=== PATIENT | female | born 1965 | race African-American/Black ===

== ENCOUNTER → 2017-11-07 | Outpatient (REF) ==
[~2017-11-07] MED LIST: ASPI81TA86 PO; CYCL10TA29 PO; HYDR-2966 PO; KET10 PO; LOR5/325 PO; MELO-150 PO; METH-280 PO; OXYC-865 PO; PROM-110 PO
--- NOTE | 2017-11-07 16:07 | RADIOLOGY IMAGING REPORT ---
FACILITY: [facility] - [place] PATIENT NAME: Angelina Lackey : 1965 MR: [id number] V: [id number] EXAM DATE: ORDERING PHYSICIAN: MIKAL SCHOFIELD TECHNOLOGIST: [place] [facility] [place] Angelina Lackey : 1965 Visit/Account:[id number] Date of Sevice: 11/07/2017 Exam type: THORACIC SPINE 2 VIEW History: Pain middle back radiating down to lower back Comparison: None. Findings: There are mild to moderate spondylotic changes seen throughout the thoracic spine particular prominen t in the midthoracic spine with mild to moderate disc space narrowing and small marginal osteophytes. There is no demonstration of acute fractures or subluxations the upper thoracic spine not ideally v isualized due to patient rotation IMPRESSION: 1. Mild to moderate spondylotic changes throughout the thoracic spine particularly prominent in the midthoracic spine. Report Dictated By: Cathryn Garcia MD at 11/07/2017 4:02 PM Report E-Signed By: Cathryn Garcia MD at 11/07/2017 4:04 PM WSN:[email or web address]
--- NOTE | 2017-11-07 16:07 | RADIOLOGY IMAGING REPORT ---
FACILITY: [facility] - [place] PATIENT NAME: Angelina Lackey : 1965 MR: [id number] V: [id number] EXAM DATE: ORDERING PHYSICIAN: MIKAL SCHOFIELD TECHNOLOGIST: Location: [facility] Patient: Angelina Lackey : 1965 Visit/Account:[id number] Date of Sevice: 11/07/2017 Exam type: LUMBAR SPINE 2 OR 3 VIEW History: Pain middle back radiating down to lower back Comparison: None. Findings: There are five nonrib-bearing lumbar-type vertebral bodies present. There is no evidence of acute fr actures or subluxations. There is mild disc space narrowing at L5-S1.. Incidentally noted are surgi sina clips in the right upper quadrant IMPRESSION: 1. Mild disc space narrowing at L5-S1 Report Dictated By: Cathryn Garcia MD at 11/07/2017 4:02 PM Report E-Signed By: Cathryn Garcia MD at 11/07/2017 4:02 PM WSN:[email or web address]
== END ==
LOC: RAD 15:11
PROVIDERS: ATTEND Orthopaedic Surgery Orthopaedic Surgery of the Spine
DX: M47.814 Spondylosis without myelopathy or radiculopathy, thoracic region (principal)
CPT/HCPCS: 72070; 72100

== ENCOUNTER 2017-12-13 09:37 | Emergency (ER) | payer SELFPAY ==
[~2017-12-13] VITALS: Ht 170.2 cm; Wt 81.6 kg
--- NOTE | 2017-12-13 09:47 | ER Report ---
History and Physical Time Seen By : 09:49 Hx. of Stated Complaint: CHEST HEAVINESS AND ELEVATED BP HPI/ROS CHIEF COMPLAINT: back pain, chest pain, elevated blood pressure HISTORY OF PRESENT ILLNESS: This is a 52 year old female. She is having some ongoing problems with pain in her back. Generally on the right upper back with spasming associated, but has had some in the left side as well. Feeling some heaviness in the chest the last few days, thought this might be due to a new exercise program she is doing to try and lose some weight. No fevers or chills. No cough, runny nose or sore throat. No nausea or vomiting. No abdominal pain. No problems with bowels or urination, no blood in stool or urine, no black stools. She does have high blood pressure, noted that her blood pressure was higher than usual today. Took it multiple times on the [employer] blood pressure machine. She takes Amlodipine 5mg once a day. Had some old Hydrochlorothiazide and took two of these this morning. Wondering if her blood pressure might be high because of her pain. Allergies: Coded Allergies: Penicillins (Verified Allergy, Severe, SWELLING/SOB, 12/13/17) shellfish derived (Unverified Allergy, Unknown, 12/13/17) latex (Verified Adverse Reaction, Severe, RASH, 12/13/17) Home Meds Active Scripts Hydrochlorothiazide (HYDROCHLOROTHIAZIDE) 25 Mg Tablet, 1 TAB PO QDAY, #30 TAB 0 Refills Prov:BURTON VALDEZ MD 12/13/17 Amlodipine Besylate (AMLODIPINE BESYLATE) 10 Mg Tablet, 1 TAB PO QDAY, #30 TAB 0 Refills Prov:BURTON VALDEZ MD 12/13/17 Cyclobenzaprine Hcl (CYCLOBENZAPRINE HCL) 10 Mg Tablet, 10 MG PO Q8H Y for MUSCLE SPASMS, #20 TAB 0 Refills Prov:BURTON VALDEZ MD 12/13/17 Tramadol Hcl (TRAMADOL HCL) 50 Mg Tablet, 50 MG PO Q6H Y for PAIN, #12 TAB 0 Refills Prov:BURTON VALDEZ MD 12/13/17 Reported Medications Amlodipine Besylate (AMLODIPINE BESYLATE) 5 Mg Tablet, 1 TAB PO QDAY, TAB 12/13/17 Hydrochlorothiazide (HYDROCHLOROTHIAZIDE) 25 Mg Tablet, 1 TAB PO QDAY, TAB 06/05/17 Discontinued Reported Medications Aspirin (ASPIRIN EC) 81 Mg Tablet., 81 MG PO QDAY, TAB 05/11/16 Reviewed Nurses Notes: Yes Hx Smoking: Yes (3 CIG PER WK FOR 5 YRS) Smoking Status: Current: Some Days Smoker Hx Substance Use Disorder: No Hx Alcohol Use: No Constitutional Vital Sign - Last 24 Hours 12/13/17 12/13/17 12/13/17 12/13/17 09:45 10:00 10:30 11:00 Temp 98.3 Pulse 86 87 84 81 Resp 18 25 25 25 B/P (MAP) 173/113 156/98 (117) 154/104 (121) 139/92 (108) Pulse Ox 97 97 97 96 O2 Delivery Room Air Physical Exam General Appearance: The patient is alert. No acute distress. Non-toxic in appearance. Eyes: Pupils are equal, round. Reactive to light. No pallor, injection or icterus. Extraocular movements are intact. ENT: Mucous membranes are moist. Normal oral mucosa. Posterior oropharynx is normal. Normal nasal mucosa. Normal tympanic membranes and canals. Neck: Supple and non tender. No lymphadenopathy. Respiratory: Lungs are clear to auscultation. Cardiovascular: Regular rate and rhythm. No murmurs, gallops or rubs. Normal capillary refill. No edema. Gastrointestinal: Abdomen is soft and non tender. Nondistended. Normal active bowel sounds. No costovertebral angle tenderness with percussion. Neurological: Alert and oriented x3. No focal neurologic deficits in cranial nerves or extremities. Skin: Warm and dry. No rashes. Musculoskeletal: Pain and muscle spasms on the right side of her back in the thoracic region extending down into the low back. No midline tenderness. Slight pain on left side as well in same location. DIFFERENTIAL DIAGNOSIS: After history and physical exam, differential diagnosis was considered for elevated blood pressure in a patient with hypertension. This could be due to pain or we may need to increase her medication for hypertension. Pain associated with the muscle spasms and pain in the upper back. Medical Decision Making Data Points Result Diagram: 12/13/17 0954 12/13/17 0954 Laboratory Hematology Test 12/13/17 09:54 Red Blood Count 4.79 M/uL (4.17-5.56) Mean Corpuscular Volume 87.6 fL (80.0-96.0) Mean Corpuscular Hemoglobin 29.8 pg (26.0-33.0) Mean Corpuscular Hemoglobin Concent 34.0 g/dL (32.0-36.0) Red Cell Distribution Width 14.1 % (11.5-14.5) Mean Platelet Volume 10.2 fL (7.2-11.1) Neutrophils (%) (Auto) 66.0 % (39.4-72.5) Lymphocytes (%) (Auto) 25.7 % (17.6-49.6) Monocytes (%) (Auto) 5.9 % (4.1-12.4) Eosinophils (%) (Auto) 1.6 % (0.4-6.7) Basophils (%) (Auto) 0.8 % (0.3-1.4) Nucleated RBC Relative Count (auto) 0.0 /100WBC Neutrophils # (Auto) 4.9 K/uL (2.0-7.4) Lymphocytes # (Auto) 1.9 K/uL (1.3-3.6) Monocytes # (Auto) 0.4 K/uL (0.3-1.0) Eosinophils # (Auto) 0.1 K/uL (0.0-0.5) Basophils # (Auto) 0.1 K/uL (0.0-0.1) Nucleated RBC Absolute Count (auto) 0.00 K/uL D-Dimer Quantitative (PE/DVT) 0.30 ug/ml (0-0.50) Sodium Level 139 mmol/L (137-145) Potassium Level 3.6 mmol/L (3.5-5.0) Chloride Level 103 mmol/L (98-107) Carbon Dioxide Level 21 mmol/L (22-31) Blood Urea Nitrogen 13 mg/dl (7-18) Creatinine 0.70 mg/dl (0.52-1.04) Glomerular Filtration Rate Calc > 60.0 Random Glucose 122 mg/dl (75-110) Calcium Level 9.6 mg/dl (8.4-10.2) Total Bilirubin 0.5 mg/dl (0.2-1.3) Aspartate Amino Transf (AST/SGOT) 31 U/L (0-35) Alanine Aminotransferase (ALT/SGPT) 43 U/L (0-56) Alkaline Phosphatase 116 U/L (0-126) Troponin I < 0.012 ng/ml Total Protein 7.8 gm/dl (6.3-8.2) Albumin 4.5 g/dl (3.5-5.0) Chemistry Test 12/13/17 09:54 White Blood Count 7.4 k/uL (4.5-11.0) Red Blood Count 4.79 M/uL (4.17-5.56) Hemoglobin 14.3 g/dL (12.0-16.0) Hematocrit 42.0 % (34.0-47.0) Mean Corpuscular Volume 87.6 fL (80.0-96.0) Mean Corpuscular Hemoglobin 29.8 pg (26.0-33.0) Mean Corpuscular Hemoglobin Concent 34.0 g/dL (32.0-36.0) Red Cell Distribution Width 14.1 % (11.5-14.5) Platelet Count 264 K/uL (150-450) Mean Platelet Volume 10.2 fL (7.2-11.1) Neutrophils (%) (Auto) 66.0 % (39.4-72.5) Lymphocytes (%) (Auto) 25.7 % (17.6-49.6) Monocytes (%) (Auto) 5.9 % (4.1-12.4) Eosinophils (%) (Auto) 1.6 % (0.4-6.7) Basophils (%) (Auto) 0.8 % (0.3-1.4) Nucleated RBC Relative Count (auto) 0.0 /100WBC Neutrophils # (Auto) 4.9 K/uL (2.0-7.4) Lymphocytes # (Auto) 1.9 K/uL (1.3-3.6) Monocytes # (Auto) 0.4 K/uL (0.3-1.0) Eosinophils # (Auto) 0.1 K/uL (0.0-0.5) Basophils # (Auto) 0.1 K/uL (0.0-0.1) Nucleated RBC Absolute Count (auto) 0.00 K/uL D-Dimer Quantitative (PE/DVT) 0.30 ug/ml (0-0.50) Glomerular Filtration Rate Calc > 60.0 Calcium Level 9.6 mg/dl (8.4-10.2) Total Bilirubin 0.5 mg/dl (0.2-1.3) Aspartate Amino Transf (AST/SGOT) 31 U/L (0-35) Alanine Aminotransferase (ALT/SGPT) 43 U/L (0-56) Alkaline Phosphatase 116 U/L (0-126) Troponin I < 0.012 ng/ml Total Protein 7.8 gm/dl (6.3-8.2) Albumin 4.5 g/dl (3.5-5.0) Coagulation Test 12/13/17 09:54 D-Dimer Quantitative (PE/DVT) 0.30 ug/ml EKG/Imaging EKG Interpretation 12 lead EKG: Rhythm: normal sinus rhythm, rate 92 [place]: normal QRS: normal ST segments: normal Imaging CHEST SINGLE AP Indication: Increasing blood pressure.. Comparison: 04/24/2017. Findings: Cardiomediastinal silhouette and pulmonary vessels within normal limits. There is no focal infiltrate or lobar consolidation. No pneumothorax or pleural effusion. No nodule. Upper abdomen is unremarkable. No acute bony abnormality. IMPRESSION: 1. No acute cardiopulmonary process. Report Dictated By: Holger Menard at 12/13/2017 10:33 AM ED Course/Re-evaluation Clinical Indication for ER IV: Hydration, IV Access ED Course Initial blood pressure is very elevated. She had Norflex and Toradol with good relief for her muscle pain in the back. She had her blood pressure come down as well. Still elevated, but not at dangerous levels. After labs, EKG and imaging as noted above, we discussed having her increase her Amlodipine to 10mg once a day and add in her HCTZ 25mg once a day again. She will follow-up with primary care. For back pain, she cannot take NSAIDS as they cause stomach problems, so will use Tramadol 50mg and Flexeril 10mg for pain. Decision to Disposition Date: Dec 13, 2017 Decision to Disposition Time: 11:20 Depart Departure Latest Vital Signs Vital Signs Date Time Temp Pulse Resp B/P (MAP) Pulse Ox O2 Delivery O2 Flow Rate FiO2 12/13/17 11:00 81 25 139/92 (108) 96 12/13/17 09:45 98.3 Room Air Impression: Primary Impression: Spasm of thoracic back muscle Additional Impression: Hypertension Condition: Improved Disposition: HOME OR SELF-CARE New Scripts Hydrochlorothiazide (HYDROCHLOROTHIAZIDE) 25 Mg Tablet 1 TAB PO QDAY, #30 TAB 0 Refills Prov: BURTON VALDEZ MD 12/13/17 Amlodipine Besylate (AMLODIPINE BESYLATE) 10 Mg Tablet 1 TAB PO QDAY, #30 TAB 0 Refills Prov: BURTON VALDEZ MD 12/13/17 Cyclobenzaprine Hcl (CYCLOBENZAPRINE HCL) 10 Mg Tablet 10 MG PO Q8H Y for MUSCLE SPASMS, #20 TAB 0 Refills Prov: BURTON VALDEZ MD 12/13/17 Tramadol Hcl (TRAMADOL HCL) 50 Mg Tablet 50 MG PO Q6H Y for PAIN, #12 TAB 0 Refills Prov: BURTON VALDEZ MD 12/13/17 Patient Instructions: Chronic Hypertension (ED), Muscle Spasm (ED) Additional Instructions: Increase your Amlodipine to 10mg once a day. Re-start you Hydrochlorothiazide 25mg once a day. Follow-up with your regular doctor. For the back spasms and pain: Tramadol 50mg, one every 6 hours as needed for the next 3 days. Flexeril 10mg, one every 8 hours as needed for back muscle spasms. Problem Qualifiers Additional Impression: Hypertension Hypertension type: unspecified Qualified Codes: I10 - Essential (primary) hypertension BURTON VALDEZ MD Dec 13, 2017 09:47
[2017-12-13] MEDS ORDERED: AMLO-96 PO (09:50)
[2017-12-13] MEDS ORDERED: ORPHENADRINE 60MG/2ML INJ IVP ONE (10:05)
[2017-12-13] MEDS ORDERED: KETOROLAC 30 MG/ML VIAL IVP ONE (10:05)
[2017-12-13 10:13] LABS: PLATELET COUNT, AUTOMATED 264 K/uL (150-450)
--- NOTE | 2017-12-13 10:17 | EKG ---
FACILITY: [facility] - [place] PATIENT NAME: CARLY PAK : [id number] MR: [id number] V: [id number] EXAM DATE: ORDERING PHYSICIAN: BURTON VALDEZ TECHNOLOGIST: DIANA Test Reason : CP Blood Pressure : / mmHG Vent. Rate : 092 BPM Atrial Rate : 092 BPM P-R Int : 156 ms QRS Dur : 088 ms QT Int : 360 ms P-R-T Axes : 059 003 036 degrees QTc Int : 445 ms Normal sinus rhythm Normal ECG When compared with ECG of 24-APR-2017 14:24, No significant change was found Confirmed by EBEN JOYA ([id number]) on 12/13/2017 11:59:11 AM Referred By: JOSÉ MIGUEL Confirmed By:EBEN JOYA
--- NOTE | 2017-12-13 10:38 | RADIOLOGY IMAGING REPORT ---
FACILITY: [facility] PATIENT NAME: Angelina Lackey : 1965 MR: [id number] V: [id number] EXAM DATE: ORDERING PHYSICIAN: BURTON VALDEZ TECHNOLOGIST: Location: [facility] [place] Patient: Angelina Lackey : 1965 Visit/Account:[id number] Date of Sevice: 12/13/2017 CHEST SINGLE AP Indication: Increasing blood pressure.. Comparison: 04/24/2017. Findings: Cardiomediastinal silhouette and pulmonary vessels within normal limits. There is no focal infiltrate or lobar consolidation. No pneumothorax or pleural effusion. No nodule. Upper abdomen is unremarkable. No acute bony abnormality. IMPRESSION: 1. No acute cardiopulmonary process. Report Dictated By: Holger Menard at 12/13/2017 10:33 AM Report E-Signed By: Holger Menard at 12/13/2017 10:34 AM WSN:[id number]
[2017-12-13 11:00] VITALS: BP 139/92
[2017-12-13] MEDS ORDERED: ONDANSETRON 4 MG ODT TABDP SL ONE (11:15)
[2017-12-13] MEDS ORDERED: amLODIPine BESYL(*) 5 MG TAB PO ONE (11:15)
[2017-12-13] MEDS ORDERED: TRAM-420 PO (11:31)
[2017-12-13] MEDS ORDERED: CYCL10TA29 PO (11:31)
[2017-12-13] MEDS ORDERED: AMLO-99 PO (11:31)
[2017-12-13] MEDS ORDERED: HYDR-2966 PO (11:31)
== END 2017-12-13 11:37 | disposition home or self-care (01) ==
LOC: ER 10:04
DX: I10 Essential (primary) hypertension (principal); M62.830 Muscle spasm of back
CPT/HCPCS: 71045; 84484; 85025; 85379; 93005; 96374; 96375; 99284; J1885; J2360; S0119; 82040; 82247; 82310; 82374; 82435; 82565; 82947; 84075; 84132; 84155; 84295; 84450; 84460; 84520

== ENCOUNTER → 2018-03-04 | Outpatient (REF) ==
[~2018-03-04] MED LIST changes: +AMLO-96 PO; +AMLO-99 PO; +TRAM-420 PO
--- NOTE | 2018-03-05 09:39 | RADIOLOGY IMAGING REPORT ---
FACILITY: [facility] PATIENT NAME: CARLY PAK : [id number] MR: [id number] V: [id number] EXAM DATE: ORDERING PHYSICIAN: KRISTAL JARQUIN TECHNOLOGIST: Tiffani Caraballo PROCEDURE:BILATERAL DIAGNOSTIC MAMMOGRAPHY WITH TOMOGRAPHY & COMPUTER ASSISTED DIAGNOSIS COMPARISON:Compared to 02/27/17. INDICATIONS:LT BREAST PAIN FINDINGS: Scattered fibroglandular densities are present in both breasts. A small nodularity is present in the lateral Left breast, unchanged. Benign appearing asymmetries are scattered bilaterally, unchanged. Ultrasound findings: No cystic or solid masses are present in the Left breast. DIAGNOSTIC CATEGORY 1--NEGATIVE. RECOMMENDATIONS: ROUTINE MAMMOGRAM AND CLINICAL EVALUATION. IMPRESSION: BIRADS 1: Negative. Recommendations: bilateral screening mammography in 1 year. Comment: An imaging study negative for malignancy should not detour biopsy is indicated clinically. Dictated by: Simon Barr M.D. on 03/04/2018 at 15:11 Transcribed by: ANNE on 03/04/2018 at 15:31 Approved by: Ralph Lucero M.D. on 03/05/2018 at 9:39 [facility]
--- NOTE | 2018-03-05 09:39 | RADIOLOGY IMAGING REPORT ---
FACILITY: [facility] PATIENT NAME: CARLY PAK : [id number] MR: [id number] V: [id number] EXAM DATE: [id number] ORDERING PHYSICIAN: KRISTAL JARQUIN TECHNOLOGIST: Gina Penaloza PROCEDURE:US LEFT BREAST COMPLETE COMPARISON:None. INDICATIONS:LT BREAST PAIN FINDINGS: Refer to combined mammographic report. DIAGNOSTIC CATEGORY 1--NEGATIVE. RECOMMENDATIONS: ROUTINE MAMMOGRAM AND CLINICAL EVALUATION. IMPRESSION: BIRADS 1: Negative. Dictated by: Simon Barr M.D. on 03/04/2018 at 15:13 Transcribed by: ANNE on 03/04/2018 at 15:34 Approved by: Ralph Lucero M.D. on 03/05/2018 at 9:39 [facility]
== END ==
LOC: MAMO 01:37
PROVIDERS: ATTEND Nurse Practitioner
DX: N64.4 Mastodynia (principal)
CPT/HCPCS: 77062; 77066

== ENCOUNTER → 2018-03-13 | Outpatient (REF) ==
--- NOTE | 2018-03-16 17:24 | RADIOLOGY IMAGING REPORT ---
FACILITY: [facility] PATIENT NAME: CARLY PAK : [id number] MR: [id number] V: [id number] EXAM DATE: ORDERING PHYSICIAN: KRISTAL JARQUIN TECHNOLOGIST: Gina Penaloza RDMS(ABD,OBGYN,BR),RVT EXAMINATION:TWO-DIMENSIONAL ECHOCARDIOGRAPH REASON:LEFT CHEST PAIN 2D Measurements (normal values in centimeters) LV endLV endRV endVent.LV PostAorticLeftPercent DiastolicSystolicDiastolicSeptumWallRootAtriumShortening (3.5-5.7)(0.9-2.6)(0.6-1.1)(0.6-1.1)(2.0-3.7)(1.9-4.0)(25-35%) 4.83.42.4.58.772.83.128% STROKE VOLUME: 57ml ESTIMATED EJECTION FRACTION:54-55% LEFT VENTRICLE: Normal size & function, overall appeared to be some mild global hypokinesis with ejection fraction of 50-55%. Normal diastolic function. RIGHT VENTRICLE: Normal size & function. RIGHT ATRIUM: Normal size. LEFT ATRIUM: Normal size, no evidence of intra atrial shunting by Color flow Doppler. AORTIC VALVE: Trileaflet, no evidence of stenosis or regurgitation. PULMONIC VALVE: Not well visualized, no evidence of significant stenosis or regurgitation. MITRAL VALVE: Normal structure & function, trace regurgitation, no stenosis. TRICUSPID VALVE: Normal structure & function, trace regurgitation, insufficient for RVSP, no significant stenosis. PERICARDIUM: No evidence of pericardial effusion. EXTRACARDIAC SPACE: No evidence of pleural effusion. GREAT VESSELS: Aorta within normal size limits, no evidence of dissection or aneurysm. OVERALL IMPRESSION: 1. Ejection fraction 50-55% with mild global hypokinesis. 2. No hemodynamically significant valvular dysfunction noted. Dictated by: Rohit Rodrigez M.D. on 03/13/2018 at 17:50 Transcribed by: WILL on 03/16/2018 at 7:17 Approved by: Rohit Rodrigez M.D. on 03/16/2018 at 17:23 [facility]
== END ==
LOC: US 00:16
PROVIDERS: ATTEND Nurse Practitioner
DX: R07.9 Chest pain, unspecified (principal)
CPT/HCPCS: C8929; Q9957

== ENCOUNTER → 2018-05-05 | Outpatient (REF) | LOC: RAD 01:56 → EDSTATUS 10:00 | PROVIDERS: ATTEND Nurse Practitioner | DX: I34.0 Nonrheumatic mitral (valve) insufficiency (principal); I36.1 Nonrheumatic tricuspid (valve) insufficiency | CPT/HCPCS: 93017 ==

== ENCOUNTER → 2018-05-20 | Outpatient (REF) ==
--- NOTE | 2018-05-20 08:18 | RADIOLOGY IMAGING REPORT ---
FACILITY: [facility] PATIENT NAME: Angelina Lackey : 1965 MR: [id number] V: [id number] EXAM DATE: ORDERING PHYSICIAN: KRISTAL JARQUIN TECHNOLOGIST: Location: [facility] Patient: Angelina Lackey : 1965 Visit/Account:[id number] Date of Sevice: 05/20/2018 EXAMINATION: Chest radiographs 2 views HISTORY: Pre-coronary angiogram 05/26/2018. COMPARISON: 12/13/2017. FINDINGS: PA and lateral views of the chest are submitted. Lines/tubes: None. Lungs/pleura: No focal consolidation or pleural effusion. Heart: Negative. Mediastinum: Negative. Bony structures/body wall: Negative. IMPRESSION: No radiographic evidence of acute cardiopulmonary disease. Report Dictated By: Carli Cassidy MD at 05/20/2018 8:13 AM Report E-Signed By: Carli Cassidy MD at 05/20/2018 8:14 AM WSN:[id number]
== END ==
LOC: RAD 07:19
PROVIDERS: ATTEND Nurse Practitioner
DX: I25.10 Atherosclerotic heart disease of native coronary artery without angina pectoris (principal)
CPT/HCPCS: 71046

== ENCOUNTER 2018-05-30 07:39 | Emergency (ER) | payer SELFPAY ==
--- NOTE | 2018-05-30 07:44 | ER Report ---
History and Physical Time Seen By MD: 07:44 HPI/ROS CHIEF COMPLAINT: Right upper extremity swelling distal to the elbow HISTORY OF PRESENT ILLNESS: Patient is a 53-year-old female here with complaints of right upper extremity swelling and pain distal to the elbow which has been progressive since . Patient reportedly had a cardiac catheterization on and has had progressive pain and swelling since that time. She had a radial arterial access for her catheterization. Patient is afebrile and denies chest pain, shortness of breath, abdominal pain, nausea, vomiting fevers or chills. REVIEW OF SYSTEMS: Constitutional: No fever, no chills. Eyes: No discharge. ENT: No sore throat. Cardiovascular: No chest pain, no palpitations. Respiratory: No cough, no shortness of breath. Gastrointestinal: No abdominal pain, no vomiting. Genitourinary: No hematuria. Musculoskeletal: + Right upper extremity swelling distal to the elbow Skin: No rashes. Neurological: No headache. Allergies: Coded Allergies: Penicillins (Verified Allergy, Severe, SWELLING/SOB, 05/30/18) losartan (Verified Allergy, Unknown, BRONCHOSPASM, 05/30/18) shellfish derived (Unverified Allergy, Unknown, 05/30/18) latex (Verified Adverse Reaction, Severe, RASH, 05/30/18) Home Meds Reported Medications Atorvastatin Calcium (ATORVASTATIN CALCIUM) 40 Mg Tablet, QDAY 05/30/18 Amlodipine Besylate (AMLODIPINE BESYLATE) 5 Mg Tablet, 1 TAB PO QDAY, TAB 12/13/17 Discontinued Reported Medications Hydrochlorothiazide (HYDROCHLOROTHIAZIDE) 25 Mg Tablet, 1 TAB PO QDAY, TAB 06/05/17 Discontinued Scripts Hydrochlorothiazide (HYDROCHLOROTHIAZIDE) 25 Mg Tablet, 1 TAB PO QDAY, #30 TAB 0 Refills Prov:BURTON VALDEZ MD 12/13/17 Amlodipine Besylate (AMLODIPINE BESYLATE) 10 Mg Tablet, 1 TAB PO QDAY, #30 TAB 0 Refills Prov:BURTON VALDEZ MD 12/13/17 Cyclobenzaprine Hcl (CYCLOBENZAPRINE HCL) 10 Mg Tablet, 10 MG PO Q8H Y for MUSCLE SPASMS, #20 TAB 0 Refills Prov:BURTON VALDEZ MD 12/13/17 Tramadol Hcl (TRAMADOL HCL) 50 Mg Tablet, 50 MG PO Q6H Y for PAIN, #12 TAB 0 Refills Prov:BURTON VALDEZ MD 12/13/17 Hx Smoking: Yes (3 CIG PER WK FOR 5 YRS) Smoking Status: Current: Some Days Smoker Hx Substance Use Disorder: No Hx Alcohol Use: No Constitutional Vital Sign - Last 24 Hours 05/30/18 05/30/18 05/30/18 05/30/18 07:40 07:44 07:54 08:00 Temp 98.3 Pulse 100 Resp 18 B/P (MAP) 150/104 150/104 (119) 147/101 (116) Pulse Ox 96 97 O2 Delivery Room Air 05/30/18 05/30/18 05/30/18 08:09 08:10 08:30 Pulse 93 B/P (MAP) 148/93 (111) Pulse Ox 94 Physical Exam General Appearance: The patient is alert, has no immediate need for airway protection and no signs of toxicity. Mild distress secondary to pain Eyes: Pupils equal and round no pallor or injection. ENT, Mouth: Mucous membranes are moist. Respiratory: There are no retractions, lungs are clear to auscultation. Cardiovascular: Regular rate and rhythm. Gastrointestinal: Abdomen is soft and non tender, no masses, bowel sounds normal. Neurological: No focal neurologic deficits, neurovascular exam is intact distal to the swelling in the right upper extremity Skin: Warm and dry, no rashes. Musculoskeletal: Neck is supple non tender. Right upper extremity is tender to palpation distal to the elbow. DIFFERENTIAL DIAGNOSIS: After history and physical exam differential diagnosis was considered for vascular damage, infection, cellulitis, abscess Medical Decision Making Data Points Result Diagram: 05/30/18 0800 05/30/18 0800 Laboratory Hematology Test 05/30/18 08:00 Red Blood Count 4.46 M/uL (4.17-5.56) Mean Corpuscular Volume 87.5 fL (80.0-96.0) Mean Corpuscular Hemoglobin 30.4 pg (26.0-33.0) Mean Corpuscular Hemoglobin Concent 34.8 g/dL (32.0-36.0) Red Cell Distribution Width 14.5 % (11.5-14.5) Mean Platelet Volume 9.9 fL (7.2-11.1) Neutrophils (%) (Auto) 54.6 % (39.4-72.5) Lymphocytes (%) (Auto) 35.7 % (17.6-49.6) Monocytes (%) (Auto) 7.2 % (4.1-12.4) Eosinophils (%) (Auto) 1.7 % (0.4-6.7) Basophils (%) (Auto) 0.8 % (0.3-1.4) Nucleated RBC Relative Count (auto) 0.1 /100WBC Neutrophils # (Auto) 4.2 K/uL (2.0-7.4) Lymphocytes # (Auto) 2.7 K/uL (1.3-3.6) Monocytes # (Auto) 0.6 K/uL (0.3-1.0) Eosinophils # (Auto) 0.1 K/uL (0.0-0.5) Basophils # (Auto) 0.1 K/uL (0.0-0.1) Nucleated RBC Absolute Count (auto) 0.01 K/uL Sodium Level 141 mmol/L (137-145) Potassium Level 3.5 mmol/L (3.5-5.0) Chloride Level 106 mmol/L (98-107) Carbon Dioxide Level 22 mmol/L (22-31) Blood Urea Nitrogen 13 mg/dl (7-18) Creatinine 0.70 mg/dl (0.52-1.04) Glomerular Filtration Rate Calc > 60.0 Random Glucose 110 mg/dl (75-110) Calcium Level 9.2 mg/dl (8.4-10.2) Total Bilirubin 0.6 mg/dl (0.2-1.3) Aspartate Amino Transf (AST/SGOT) 74 U/L (0-35) Alanine Aminotransferase (ALT/SGPT) 80 U/L (0-56) Alkaline Phosphatase 130 U/L (0-126) Total Protein 7.2 g/dl (6.3-8.2) Albumin 4.3 g/dl (3.5-5.0) Chemistry Test 05/30/18 08:00 White Blood Count 7.6 k/uL (4.5-11.0) Red Blood Count 4.46 M/uL (4.17-5.56) Hemoglobin 13.6 g/dL (12.0-16.0) Hematocrit 39.0 % (34.0-47.0) Mean Corpuscular Volume 87.5 fL (80.0-96.0) Mean Corpuscular Hemoglobin 30.4 pg (26.0-33.0) Mean Corpuscular Hemoglobin Concent 34.8 g/dL (32.0-36.0) Red Cell Distribution Width 14.5 % (11.5-14.5) Platelet Count 260 K/uL (150-450) Mean Platelet Volume 9.9 fL (7.2-11.1) Neutrophils (%) (Auto) 54.6 % (39.4-72.5) Lymphocytes (%) (Auto) 35.7 % (17.6-49.6) Monocytes (%) (Auto) 7.2 % (4.1-12.4) Eosinophils (%) (Auto) 1.7 % (0.4-6.7) Basophils (%) (Auto) 0.8 % (0.3-1.4) Nucleated RBC Relative Count (auto) 0.1 /100WBC Neutrophils # (Auto) 4.2 K/uL (2.0-7.4) Lymphocytes # (Auto) 2.7 K/uL (1.3-3.6) Monocytes # (Auto) 0.6 K/uL (0.3-1.0) Eosinophils # (Auto) 0.1 K/uL (0.0-0.5) Basophils # (Auto) 0.1 K/uL (0.0-0.1) Nucleated RBC Absolute Count (auto) 0.01 K/uL Glomerular Filtration Rate Calc > 60.0 Calcium Level 9.2 mg/dl (8.4-10.2) Total Bilirubin 0.6 mg/dl (0.2-1.3) Aspartate Amino Transf (AST/SGOT) 74 U/L (0-35) Alanine Aminotransferase (ALT/SGPT) 80 U/L (0-56) Alkaline Phosphatase 130 U/L (0-126) Total Protein 7.2 g/dl (6.3-8.2) Albumin 4.3 g/dl (3.5-5.0) EKG/Imaging Imaging Please see arterial Doppler report. ED Course/Re-evaluation ED Course Patient is a 53-year-old female here status post cardiac catheterization with right distal arm swelling. Patient had a radial artery catheterization entry site with surrounding edema. Hematocrit and hemoglobin were normal. Patient had an arterial Doppler which showed triphasic signaling throughout the arterial supply. No structural damage to the vasculature was noted on the study. She was given a prescription for tramadol for pain control and advised to rest, ice, elevate the extremity. Patient was stable at time of discharge. Decision to Disposition Date: May 30, 2018 Decision to Disposition Time: 09:19 Depart Departure Latest Vital Signs Vital Signs Date Time Temp Pulse Resp B/P (MAP) Pulse Ox O2 Delivery O2 Flow Rate FiO2 05/30/18 08:30 148/93 (111) 05/30/18 08:10 93 05/30/18 08:09 94 05/30/18 07:40 98.3 18 Room Air Impression: Primary Impression: Arm edema Condition: Improved Disposition: HOME OR SELF-CARE New Scripts Tramadol Hcl (TRAMADOL HCL) 50 Mg Tablet 50 MG PO Q6H Y for PAIN, #12 TAB 0 Refills Prov: MOUNIKA MOORE DO 05/30/18 Patient Instructions: Edema (ED), Tramadol (By mouth) Additional Instructions: You may take 1 tablet of tramadol every 6-8 hours as needed for pain control. Please rest, elevate, ice the affected area. Please return promptly with worsening pain, numbness, fevers, rashes. Please follow-up with your family doctor in the next 2 days. MOUNIKA MOORE DO May 30, 2018 07:44
[2018-05-30] MEDS ORDERED: ATOR40TA69 (07:47)
[2018-05-30] MEDS ORDERED: MORPHINE 4 MG/ML SDV IVP ONE (07:55)
[2018-05-30 08:35] LABS: PLATELET COUNT, AUTOMATED 260 K/uL (150-450)
[2018-05-30 09:00] VITALS: BP 140/94
[2018-05-30] MEDS ORDERED: TRAM-420 PO (09:18)
--- NOTE | 2018-05-30 09:52 | RADIOLOGY IMAGING REPORT ---
FACILITY: [facility] [place] PATIENT NAME: Angelina Lackey : 1965 MR: [id number] V: [id number] EXAM DATE: ORDERING PHYSICIAN: MOUNIKA MOORE TECHNOLOGIST: Location: [facility] Patient: Angelina Lackey : 1965 Visit/Account:[id number] Date of Sevice: 05/30/2018 ARTERIAL UPPER EXT RIGHT HISTORY: recent cath on Arterial ultrasound evaluation of the right arm. Findings: Arterial evaluation of the right arm demonstrates a patent right arm with the following parameters ob tained. Subclavian artery: Triphasic. Peak systolic velocity 73.7 cm/s Axillary artery: Triphasic. Peak systolic flow of 94.1 cm/s Brachial artery proximal triphasic. Peak systolic flow of 90.9 cm/s Brachial artery middle: Triphasic. 103 cm/s Brachial artery distal: Triphasic. 76 cm/s Radial artery proximal. Triphasic. 68.8 cm/s Radial artery distal. Triphasic. 51.4 cm/s Ulnar artery proximal: Triphasic. 56.5 cm/s Ulnar artery distal: Triphasic, 75.8 cm/s In the distal radius near the radial artery there is periprocedural edema seen in the soft tissues. IMPRESSION: 1. Patent arterial inflow throughout the right arm with no evidence of postprocedural arterial advers e sequela change. Right wrist soft tissue edema change from catheter procedure. Report Dictated By: Frankie Petty MD at 05/30/2018 9:42 AM Report E-Signed By: Frankie Petty MD at 05/30/2018 9:49 AM WSN:[id number]
== END 2018-05-30 09:32 | disposition home or self-care (01) ==
LOC: ER 07:42
DX: R60.9 Edema, unspecified (principal); M79.601 Pain in right arm; F17.210 Nicotine dependence, cigarettes, uncomplicated
CPT/HCPCS: 85025; 93931; 96374; 99284; J2270; 82040; 82247; 82310; 82374; 82435; 82565; 82947; 84075; 84132; 84155; 84295; 84450; 84460; 84520

== ENCOUNTER → 2018-11-04 | Outpatient (REF) ==
[~2018-11-04] MED LIST changes: +AMLO-125 PO; +AMLO-127 PO; -AMLO-96 PO; -AMLO-99 PO; +ATOR40TA69; +IOPAMIDOL 76% 100 ML INFUS BTL 100 ML ONE
--- NOTE | 2018-11-04 09:05 | RADIOLOGY IMAGING REPORT ---
FACILITY: [facility] PATIENT NAME: Angelina Lackey : 1965 MR: [id number] V: [id number] EXAM DATE: ORDERING PHYSICIAN: VICKIE GRISSOM TECHNOLOGIST: Location: [facility] [place] Patient: Angelina Lackey : 1965 Visit/Account:[id number] Date of Sevice: 11/04/2018 CT ABDOMEN PELVIS W/ CON COMPARISON: None. HISTORY: Abdominal distention, fullness for 3 years. TECHNIQUE: Axial CT abdomen and pelvis with intravenous contrast. The patient drank 800 mL of water prior to the scan. Coronal and sagittal reformats. One of the following dose optimization technique s was utilized in the performance of this exam: automated exposure control; adjustment of the mA and/ or kV according to patient size; or use of iterative reconstruction technique. Specific details can be referenced in the facility's radiology CT exam operational policy. CONTRAST: 75 mL of IV Isovue-370. FINDINGS: LUNG BASES: Negative. LIVER: Elongated right lobe representing a normal variant. Small vague region of decreased subcapsul ar low-density adjacent to the falciform ligament in the left lobe is characteristic in location for focal fat deposition versus perfusional variation. Otherwise negative. BILIARY: Postcholecystectomy without significant bile duct dilatation. Common duct measures up to 9 mm which is upper normal for postcholecystectomy state. SPLEEN: Negative. PANCREAS: Negative. ADRENALS: Negative. KIDNEYS: Negative. GI/MESENTERY: Severe diffuse colonic diverticulosis. No bowel wall thickening, mass or obstruction. Elongated, normal size retrocecal appendix. Unremarkable unopacified stomach and small bowel.. VASCULAR: Mild vascular calcifications. LYMPH NODES: Negative. BLADDER: Negative. PELVIC ORGANS: Uterus and ovaries are unremarkable by CT. BONES: Moderate facet joint hypertrophy at L4-5 bilaterally. Mild degenerative disc vacuum disc at L 5-S1. OTHER: There is rectus muscle diastasis in the epigastrium.. IMPRESSION: 1. No specific cause for reported symptoms. 2. Common duct prominence within normal limits postcholecystectomy. 3. Rectus muscle diastasis within the epigastrium. 4. Severe diffuse colonic diverticulosis without diverticulitis or other significant bowel pathology . Report Dictated By: Richy Justice at 11/04/2018 8:53 AM Report E-Signed By: Richy Justice at 11/04/2018 9:00 AM WSN:[id number]
== END ==
LOC: CT 00:33 → EDSTATUS 13:29
PROVIDERS: ATTEND Family Medicine
DX: K57.30 Diverticulosis of large intestine without perforation or abscess without bleeding (principal); Z90.49 Acquired absence of other specified parts of digestive tract; M62.08 Separation of muscle (nontraumatic), other site; M79.81 Nontraumatic hematoma of soft tissue
CPT/HCPCS: 36415; 74177; 82565; Q9967

== ENCOUNTER 2019-04-24 10:30 | Emergency (ER) | payer OTHER ==
[~2019-04-24 10:30] MED LIST changes: -IOPAMIDOL 76% 100 ML INFUS BTL 100 ML ONE
[2019-04-24 10:36] VITALS: BP 196/109
--- NOTE | 2019-04-24 10:40 | ER Report ---
History and Physical Time Seen By MD: 10:35 HPI/ROS CHIEF COMPLAINT: Left shoulder pain HISTORY OF PRESENT ILLNESS: Patient is an otherwise healthy 54-year-old female comes emergency by with a complaint of left shoulder strain. Patient states yesterday she was moving furniture and felt a strain in the left posterior part of her shoulder she's had pain ever since full range of motion but with some discomfort no falls or trauma no additional complaints noted REVIEW OF SYSTEMS: Respiratory: No cough, no dyspnea. Cardiovascular: No chest pain, no palpitations. Gastrointestinal: No vomiting, no abdominal pain. Musculoskeletal: Left shoulder pain Remainder of the 14 system rev: Yes Allergies: Coded Allergies: Penicillins (Verified Allergy, Severe, SWELLING/SOB, 04/24/19) losartan (Verified Allergy, Unknown, BRONCHOSPASM, 04/24/19) shellfish derived (Unverified Allergy, Unknown, 04/24/19) latex (Verified Adverse Reaction, Severe, RASH, 04/24/19) Home Meds Reported Medications Atorvastatin Calcium (ATORVASTATIN CALCIUM) 40 Mg Tablet, QDAY 05/30/18 Amlodipine Besylate (AMLODIPINE BESYLATE) 5 Mg Tablet, 1 TAB PO QDAY, TAB 12/13/17 Discontinued Scripts Tramadol Hcl (TRAMADOL HCL) 50 Mg Tablet, 50 MG PO Q6H PRN for PAIN, #12 TAB 0 Refills Prov:MOUNIKA MOORE DO 05/30/18 Reviewed Nurses Notes: Yes Old Medical Records Reviewed: Yes Hx Smoking: Yes (3 CIG PER WK FOR 5 YRS) Smoking Status: Current: Some Days Smoker Hx Substance Use Disorder: No Hx Alcohol Use: No Constitutional Vital Sign - Last 24 Hours 04/24/19 04/24/19 10:33 10:36 Temp 98.0 Pulse 119 Resp 20 B/P (MAP) 196/109 (138) 196/109 Pulse Ox 93 O2 Delivery Room Air Physical Exam General appearance: [Alert no distress.] Respiratory: Chest is non tender, lungs are clear to auscultation. Cardiac: Regular rate and rhythm [ ] Left shoulder examination patient with full range of motion but pain with full extension and and external rotation normal tracking of the joint and the mortise no sign of dislocation some point tenderness to the before meals joint neurovascular intact otherwise unremarkable DIFFERENTIAL DIAGNOSIS: After history and physical exam differential diagnosis was considered for muscle strain acromioclavicular separation Medical Decision Making ED Course/Re-evaluation ED Course ED medical decision-making a 54-year-old female comes emergency Department today with a complaint of left shoulder pain after lifting patient x-ray shows osteoarthritis but no acute injury will put her in a sling for a couple days and follow-up with primary care as needed diagnosis muscle strain Decision to Disposition Date: Apr 24, 2019 Decision to Disposition Time: 11:12 Depart Departure Latest Vital Signs Vital Signs Date Time Temp Pulse Resp B/P (MAP) Pulse Ox O2 Delivery O2 Flow Rate FiO2 04/24/19 10:36 98.0 119 20 196/109 93 Room Air Impression: Primary Impression: Shoulder sprain Condition: Improved Disposition: HOME OR SELF-CARE Referrals: KATIE ALONSO MD 5 Days Patient Instructions: Shoulder Sprain (ED) Additional Instructions: Rest ice compress and elevation keep the shoulder immobilizer BRAYDON ABERNATHY MD Apr 24, 2019 10:40
--- NOTE | 2019-04-24 11:08 | RADIOLOGY IMAGING REPORT ---
FACILITY: [facility] PATIENT NAME: Angelina Lackey : 1965 MR: [id number] V: [id number] EXAM DATE: ORDERING PHYSICIAN: BRAYDON ABERNATHY TECHNOLOGIST: Location: [facility] - [place] Patient: Angelina Lackey : 1965 Visit/Account:[id number] Date of Sevice: 04/24/2019 Left shoulder, 2 views. HISTORY: Left shoulder strain, pain. COMPARISON: None. The glenohumeral joint is partially obscured due to positioning. Small marginal osteophytes and mild joint space narrowing are present in the acromioclavicular and glenohumeral joints. The subacromial s pace is unremarkable. No acute fractures are identified. IMPRESSION: Mild acromioclavicular and glenohumeral osteoarthritis. Report Dictated By: Simon Barr MD at 04/24/2019 10:59 AM Report E-Signed By: Simon Barr MD at 04/24/2019 11:01 AM WSN:[id number]
== END 2019-04-24 11:23 | disposition home or self-care (01) ==
LOC: ER 10:34
DX: S43.402A Unspecified sprain of left shoulder joint, initial encounter (principal); X50.0XXA Overexertion from strenuous movement or load, initial encounter
CPT/HCPCS: 73030; 99283; A4565